=== PATIENT | female | born 1960 | race Caucasian/White ===

== ENCOUNTER 2016-04-25 08:41 | Day surgery (SDC) ==
[2016-04-20 14:05] LABS: MANUAL DIFF NEEDED? NO
--- NOTE | 2016-04-20 14:22 | EKG Report ---
Test Performed on : 04/20/2016 1:51:33 PM Test Reason : PAT Blood Pressure : / mmHG Vent. Rate : 084 BPM Atrial Rate : 084 BPM P-R Int : 148 ms QRS Dur : 088 ms QT Int : 388 ms P-R-T Axes : 056 042 068 degrees QTc Int : 458 ms Normal sinus rhythm. Normal ECG No previous ECGs available Confirmed by Sherin NIX, [place] Park ([id number]) on 04/22/2016 1:15:01 PM
[2016-04-20 14:28] LABS: BASO% 0.6 % (0.0-0.8); EOS# 0.19 X1000 (0.0-0.7); EOS% 2.2 % (0.0-10.0); HEMATOCRIT 31.8 % (37.0-47.0); HEMOGLOBIN 10.4 g/dL (12.0-16.0); LYMPH# 1.71 X1000 (1.2-3.4); LYMPH% 19.4 % (20.5-51.1); MCH 28.7 PG (27-31); MCHC 32.7 g/dL (33-37); MCV 87.8 FL (81-99); MONO% 5.7 % (1.7-9.3); MPV 10.8 FL (7.4-10.4); NEUT% 72.1 % (42.2-75.2); PLT 301 X1000 (130-400); RBC 3.62 XMIL (4.2-5.4)
[2016-04-20 14:46] LABS: CALCIUM 8.7 mg/dL (8.8-10.2); POTASSIUM 4.5 mmol/L (3.5-5.1)
[2016-04-25] MEDS ORDERED: REGLAN ONE (09:33)
[2016-04-25] MEDS ORDERED: PEPCID ONE (09:33)
[2016-04-25] MEDS ORDERED: HUMULIN R ONE ×2 (09:34→09:44)
[2016-04-25] MEDS ORDERED: LR 1,000 ML ONE (09:51)
[2016-04-25] MEDS ORDERED: KEFZOL 1 GM/D5W 50 ML ONE (09:51)
[2016-04-25] MEDS ORDERED: PAPAVERINE ONE (10:59)
[2016-04-25] MEDS ORDERED: XYLOCAINE 1%/EPI 1:100,000 ONE (10:59)
[2016-04-25] MEDS ORDERED: HEPARIN ONE (10:59)
[2016-04-25] MEDS ORDERED: NS 1,000 ML ONE (10:59)
[2016-04-25] MEDS ORDERED: HUMULIN R IV ONE (14:45)
[2016-04-25] MEDS ORDERED: NORCO-5 ONE (15:24)
[2016-04-25] MEDS ORDERED: FENTANYL ONE (15:34)
[2016-04-25] MEDS ORDERED: DIPRIVAN 1% ONE (15:34)
[2016-04-25 16:16] VITALS: BP 120/70
[2016-04-25] MEDS ORDERED: XYLOCAINE-MPF 2% ONE (17:04)
[2016-04-25] MEDS ORDERED: PIGGYBACK SET 7393 ONE (17:04)
[2016-04-25] MEDS ORDERED: NEO-SYNEPHRINE ONE (17:04)
[2016-04-25] MEDS ORDERED: NS 250 ML ONE (17:04)
--- NOTE | 2016-04-25 17:35 | OPERATIVE NOTE ---
PROCEDURE DATE: 04/25/2016 PREOPERATIVE DIAGNOSIS: Poorly developing left Semaj AV fistula. POSTOPERATIVE DIAGNOSIS: Poorly developing left Semaj AV fistula. PROCEDURE PERFORMED: Revision of left Semaj AV fistula. SURGEON: Irene Carrizales MD. ANESTHESIA: General. ESTIMATED BLOOD LOSS: 10 mL. DRAINS: None. INDICATIONS: Mj Locke is a 55-year-old female who has had a left wrist Semaj AV fistula placed and it has been slow to develop. She has been studied at [facility] and she has undergone angioplasty of her anastomosis at the wrists. I think she has also had a coil of a venous branches off this fistula but it has still been slow to develop and a 2nd study by [facility] of the fistula suggests multiple branches coming off of it and we felt we should ligate those branches to see if we can get this fistula that still has a thrill through it to develop. If it does not develop after this, it is probably that her artery is too small at the wrist. FINDINGS: We found multiple branches off the main cephalic vein along the length of the left forearm and all of these were ligated. They were marked prior to surgery by our vascular lab. At the end we still had a thrill through this fistula in hopes that it will develop. DESCRIPTION OF PROCEDURE: The patient initially went to our vascular lab where her AV fistula was marked with all its branches. There were at least 5 branches that were marked. Her left upper extremity was prepped and draped in a sterile field. We used longitudinal incisions parallel to the AV fistula in the areas where the branches were marked. These incisions were carried down through the skin into the subcutaneous tissue and the branches were identified and ligated between 4-0 silk ties and the ligated branches were divided using tissue scissors. Along the length of the forearm we made these longitudinal incision where the branches were marked. Each time we found branches and these markings were accurate. Again these branches were ligated with 4-0 silk ties. In each branch, venous branch was divided. All our incisions were closed with 4-0 Monocryl subcuticular stitches and at the end of the procedure we still had a palpable thrill through the vein and felt to be stronger also. Dressings were applied. Plans are for her to go the recovery room to be discharged home later today under the care of her family and we will follow her AV fistula for its development.
== END 2016-04-25 16:00 | disposition home or self-care (01) ==
LOC: OPS 08:41 → EDSTATUS 12:00 → OPS 16:00
PROVIDERS: ATTEND Surgery
DX: T82.590A Other mechanical complication of surgically created arteriovenous fistula, initial encounter (principal); E11.22 Type 2 diabetes mellitus with diabetic chronic kidney disease; N18.5 Chronic kidney disease, stage 5; D63.1 Anemia in chronic kidney disease; E03.9 Hypothyroidism, unspecified; Z86.718 Personal history of other venous thrombosis and embolism; E78.00 Pure hypercholesterolemia, unspecified; Z68.35 Body mass index [BMI] 35.0-35.9, adult; G47.33 Obstructive sleep apnea (adult) (pediatric); D68.51 Activated protein C resistance; E66.9 Obesity, unspecified; F32.9 Major depressive disorder, single episode, unspecified; Z98.84 Bariatric surgery status; Z85.828 Personal history of other malignant neoplasm of skin; Z79.899 Other long term (current) drug therapy; Z79.4 Long term (current) use of insulin; Z79.01 Long term (current) use of anticoagulants; Z80.9 Family history of malignant neoplasm, unspecified; Z83.3 Family history of diabetes mellitus; Z87.891 Personal history of nicotine dependence
CPT/HCPCS: 80048; 82948; 85025; 93005; 93010; J0690; J1644; J2370; J2440; J3010; J7030; J7050; J7120